=== PATIENT | male | born 1965 | race Caucasian/White ===

== ENCOUNTER 2018-01-29 08:30 | Emergency (ER) | payer SELFPAY ==
[2018-01-29 09:10] LABS: #Basophils 0.1 thou/uL (0.0-0.2); #Eosinphils 0.2 thou/uL (0.0-0.7); #Lymphocytes 1.1 thou/uL (1.20-3.40); #Monocytes 0.4 thou/uL (0.11-0.59); #Neutrophils 3.9 thou/uL (1.40-6.50); %Basophils 1.3 % (0.0-1.0); %Eosinophils 3.1 % (0.0-10.0); %Lymphocytes 20.1 % (21.0-51.0); %Monocytes 6.3 % (0.0-10.0); %Neutrophils 69.2 % (42.0-75.0); Hemoglobin 12.4 g/dL (14.0-18.0); Mean Corpuscular HGB CONC 33.9 g/dL (32.0-36.0); Mean Corpuscular Hemoglobin 31.4 pg (27.0-31.0); Mean Corpuscular Volume 92.6 fL (78.0-98.0); Mean Platelet Volume 8.3 fL (7.4-10.4); Platelet Count 222 thou/uL (130-400); RBC Distribution Width 11.4 % (11.5-14.5); Red Blood Cell (RBC) Count 3.97 mill/uL (4.70-6.10); White Blood Cell (WBC) Count 5.7 thou/uL (4.8-10.8)
[2018-01-29 09:26] LABS: ALT (SGPT) 21 U/L (8-55); AST (SGOT) 17 U/L (5-34); Albumin 4.1 g/dL (3.5-5.0); Alkaline Phosphatase 71 U/L (40-150); Anion Gap 17 mmol/L (10-20); BUN (Urea Nitrogen) 24 mg/dL (8.4-25.7); Bilirubin, Total 0.8 mg/dL (0.2-1.2); CK (CPK) 56 U/L (30-200); Calc. Creatinine Clearance 0 mL/min (70-130); Calcium 9.7 mg/dL (7.8-10.44); Carbon Dioxide 15 mmol/L (22-29); Chloride 105 mmol/L (98-107); Estimated GFR-MDRD 49; Globulin 2.9 g/dL (2.4-3.5); Glucose 404 mg/dL (70-105); Lipase 28 U/L (8-78); Magnesium 2.2 mg/dL (1.6-2.6); Potassium 4.4 mmol/L (3.5-5.1); Sodium 133 mmol/L (136-145)
[2018-01-29 09:42] LABS: CKMB 2.6 ng/mL (0-6.6)
--- NOTE | 2018-01-29 09:53 | RAD ---
FRONTAL RADIOGRAPH CHEST: Date: 01/29/18 COMPARISON: None. HISTORY: Slurred speech. FINDINGS: There is no pneumothorax. There is interstitial opacity in the perihilar regions and both lung bases with Dev B-lines. Small bilateral pleural effusions are noted. IMPRESSION: Pulmonary vascular congestion with interstitial opacity and bilateral small pleural effusions. Findin gs are most consistent with pulmonary edema. Follow-up imaging following treatment to document resolu tion advised. POS: REYMUNDO
--- NOTE | 2018-01-29 10:39 | CT ---
CT ANGIOGRAM OF THE HEAD AND NECK: Date: 01-29-18 Comparison: None. History: Shortness of breath last night, intermittent speech difficulty. Technique: Axial CT imaging at 3.75 mm intervals from vertex through lung apices with IV contrast usi ng CT angiogram protocol. Coronal and sagittal and 3D reformatted imaging obtained. FINDINGS: CT ANGIOGRAM OF THE NECK: Imaged lung apices demonstrate interstitial thickening and bilateral pleural effusions, suspicious fo r pulmonary edema. The retroantral fat and the parapharyngeal fat is clear bilaterally. The parotid glands and submandib ular glands appear grossly unremarkable. The thyroid gland, tonsillar pillars, epiglottis and ramila epiglottic fat, hyoid bone, thyroid cartila ge, thyroid gland,, and cricoid cartilage appear grossly unremarkable. Secondary to timing of the contrast bolus, there is poor opacification of the aortic arch and the pro ximal great vessels. The aortic arch and the proximal great vessels are thus poorly assessed. Above the level of the clavi cular heads the common carotid arteries are opacified. The opacified portions of the common carotid a rteries are patent with no hemodynamically significant stenosis on the basis of NASCET criteria. Proximal aspect of bilateral vertebral arteries are poorly assessed as well. The vertebral arteries c an be visualized above the C7 level and from the C7 level through the basilar artery, the vertebral a rteries appear unremarkable. There is partially calcified mild plaque along the dorsal aspect of the distal left CCA and proximal left ICA. On the basis of NASCET criteria there is no hemodynamically significant stenosis involving the left internal carotid artery. There is mild partially calcified plaque along the dorsal aspect of the right CCA distally and proxim al right ICA proximally. On the basis of NASCET criteria, there is no hemodynamically significant concha nosis involving the right internal carotid artery. CT ANGIOGRAM OF THE HEAD: The basilar artery is patent. Branches of the basilar artery appear patent as well. The cavernous carotid arteries appear unremarkable bilaterally. The ICA bifurcation, the M1 segment, the A1 segment, and the distal [place] and MCA branches appear gross ly unremarkable. No central occlusion, high grade stenosis, or sacular aneurysm is apparent involving the anterior or posterior circulation. Review of the osseous structures of the head and neck demonstrate no acute findings. There is degener ative change involving the cervical spine, which includes the atlantoaxial interspace. There is anter ior osteophyte formation at C5-6 and C6-7. IMPRESSION: 1. CT angiogram of the neck demonstrates no hemodynamically significant stenosis on the basis of NASC ET criteria within the internal or common carotid artery on either side. 2. Limited assessment of the vascular structures at the level of the base of the neck as above. 3. CT angiogram of the head demonstrates no discrete intra-arterial filling defect centrally. 4. Findings suggesting pulmonary edema. POS: REYMUNDO
[2018-01-29] MEDS ORDERED: Furosemide 40 MG/4 ML VIAL ONE (10:51)
[2018-01-29] MEDS ORDERED: Insulin Regular 300 UNITS/3 ML VIAL ONE (11:00)
== END 2018-01-29 11:47 | disposition short-term general hospital (02) ==
LOC: NAV ERS 08:30
DX: I50.9 Heart failure, unspecified (principal); E11.65 Type 2 diabetes mellitus with hyperglycemia; I44.7 Left bundle-branch block, unspecified; G45.9 Transient cerebral ischemic attack, unspecified; Z87.891 Personal history of nicotine dependence; Z79.82 Long term (current) use of aspirin; Z79.84 Long term (current) use of oral hypoglycemic drugs
CPT/HCPCS: 70460; 70498; 71045; 80053; 82550; 82553; 83690; 83735; 83880; 84484; 85025; 93005; 96374; J1815; J1940